=== PATIENT | female | born 1935 | race Caucasian/White ===

== ENCOUNTER 2016-11-21 03:18 | Emergency (ER) | payer BC ==
[~2016-11-21] VITALS: Ht 162.6 cm; Wt 75.0 kg
[2016-11-21] MEDS ORDERED: HYDR200T4 PO (03:39)
[2016-11-21] MEDS ORDERED: PSEU60 PO (03:39)
[2016-11-21] MEDS ORDERED: DSS100 PO (03:39)
[2016-11-21] MEDS ORDERED: CALC-97 PO (03:39)
[2016-11-21] MEDS ORDERED: AMLO-511 PO (03:39)
[2016-11-21] MEDS ORDERED: PREG75 PO (03:39)
[2016-11-21] MEDS ORDERED: ASCO500 PO (03:39)
[2016-11-21] MEDS ORDERED: DESV50TA PO (03:39)
[2016-11-21] MEDS ORDERED: OMEP20 PO (03:39)
[2016-11-21] MEDS ORDERED: METF500T7 PO (03:39)
[2016-11-21] MEDS ORDERED: MAGN400T40 PO (03:39)
[2016-11-21] MEDS ORDERED: FESO8TAB PO (03:39)
[2016-11-21] MEDS ORDERED: OXYB5 PO (03:39)
[2016-11-21] MEDS ORDERED: BECL8.7A5 IH (03:39)
[2016-11-21] MEDS ORDERED: DICL2100G TP (03:39)
[2016-11-21] MEDS ORDERED: HYDR25TA PO (03:39)
[2016-11-21] MEDS ORDERED: ATOR10TA84 PO (03:39)
[2016-11-21] MEDS ORDERED: TRAZ-144 PO (03:39)
[2016-11-21] MEDS ORDERED: CELE200 PO (03:39)
[2016-11-21] MEDS ORDERED: FENT25PAT TD (03:39)
[2016-11-21] MEDS ORDERED: CLOB60CR4 TP (03:39)
[2016-11-21 03:42] LABS: GLUCOSE,POINT OF CARE 145 MG/DL (70-110)
[2016-11-21] MEDS ORDERED: ALBUTEROL SULFATE 5 MG/ML 20 ML NEB SOLN [BULK] NEB ONE (04:00)
[2016-11-21] MEDS ORDERED: IPRATROPIUM BROMIDE 0.5 MG/2.5 ML NEB SOLUTION NEB ONE (04:00)
[2016-11-21] MEDS ORDERED: 0.9% SODIUM CHLORIDE 5 ML NEB SOLUTION NEB ONE (04:07)
[2016-11-21 05:14] LABS: BASOPHILS # (AUTO) 0.05 K/uL (0.00-0.20); BASOPHILS % (AUTO) 0.8 % (0.0-2.0); EOSINOPHILS # (AUTO) 0.88 K/uL (0.00-0.70); EOSINOPHILS % (AUTO) 12.62 % (1.0-6.0); HEMATOCRIT 43.7 % (36-46); HEMOGLOBIN 14.4 g/dL (12.0-16.0); LYMPHOCYTES % (AUTO) 42.4 % (22.0-44.0); MEAN CORPUSCULAR HEMOGLOBIN 30.5 pg (26.0-34.0); MEAN CORPUSCULAR HGB CONC 32.9 G/dL (31.0-37.0); MEAN CORPUSCULAR VOLUME 93 fL (80-100); MONOCYTES # (AUTO) 0.5 K/uL (0.1-1.0); MONOCYTES % (AUTO) 6.7 % (2.0-9.0); NEUTROPHILS # (AUTO) 2.6 K/uL (1.8-7.7); NEUTROPHILS % (AUTO) 37.4 % (40.0-70.0); PLATELET COUNT (AUTO) 213 K/uL (150-450); RED BLOOD CELL COUNT(AUTO) 4.72 MIL/uL (4.00-5.20); RED CELL DISTRIBUTION WIDTH 13.3 % (11.5-14.5)
[2016-11-21 05:20] LABS: PROTHROMBIN TIME 10.6 SEC (9.4-11.6)
[2016-11-21 05:22] LABS: APPEARANCE,URINE CLEAR (CLEAR); GLUCOSE, URINE (UA) NEGATIVE (NEGATIVE); KETONES,URINE NEGATIVE (NEGATIVE); LEUKOCYTE ESTERASE ,URINE NEGATIVE (NEGATIVE); OCCULT BLOOD,URINE NEGATIVE (NEGATIVE); PROTEIN,URINE POS 1+ (NEGATIVE)
[2016-11-21 05:23] LABS: ALANINE AMINOTRANSFERASE 42 U/L (12-78); ALBUMIN 3.9 g/dL (3.4-5.0); ANION GAP 4 mmol/L (8-16); ASPARTATE AMINOTRANSFERASE 32 U/L (15-37); BILIRUBIN,TOTAL 0.3 mg/dL (0.1-1.0); CALCIUM, TOTAL 9.3 mg/dL (8.8-10.5); CARBON DIOXIDE 35 mmol/L (22-29); CHLORIDE 97 mmol/L (98-107); CREATINE KINASE, TOTAL 69 U/L (26-192); CREATININE 0.67 mg/dL (0.60-1.30); GLOMERULAR FILTR. RATE CALC > 60 mL/min (>60); SODIUM SERUM 136 mmol/L (136-145); TOTAL PROTEIN, SERUM 7.2 g/dL (6.4-8.2); UREA NITROGEN, BLOOD 9 mg/dL (7-18)
[2016-11-21 05:31] LABS: POTASSIUM 2.8 mmol/L (3.5-5.1)
[2016-11-21 05:32] LABS: LACTIC ACID 2.8 mmol/L (0.4-2.0)
[2016-11-21 05:46] LABS: ADD UA MICROSCOPIC NO
[2016-11-21 06:29] LABS: B-TYPE NATRIURETIC PEPTIDE 16 pg/mL (0-100)
[2016-11-21] MEDS ORDERED: POTASSIUM CHLORIDE 10% 40 MEQ/30 ML LIQUID UDCUP PO ONE (06:30)
[2016-11-21 06:33] VITALS: BP 110/70
[2016-11-21 06:57] LABS: REFLEX LACTIC ACID? YES YES
== END 2016-11-21 07:25 | disposition home or self-care (01) ==
LOC: EMS 03:20
DX: J40 Bronchitis, not specified as acute or chronic (principal); E87.6 Hypokalemia; E11.65 Type 2 diabetes mellitus with hyperglycemia; J44.9 Chronic obstructive pulmonary disease, unspecified; J45.909 Unspecified asthma, uncomplicated; I10 Essential (primary) hypertension; K21.9 Gastro-esophageal reflux disease without esophagitis; E78.00 Pure hypercholesterolemia, unspecified
CPT/HCPCS: 36415; 71010; 80053; 81003; 82550; 82962; 83605; 83880; 84484; 85025; 85610; 85730; 87040; 93005; 94644; 99285; J7611